=== PATIENT | male | born 1990 | race Caucasian/White ===

== ENCOUNTER 2019-08-23 13:19 | Inpatient (IN) | payer OTHER ==
[~2019-08-23] VITALS: Ht 165.1 cm; Wt 93.0 kg
[2019-08-23 13:33] VITALS: Ht 165.1 cm; Wt 93.0 kg
--- NOTE | 2019-08-23 13:42 | NUR ---
PT ARRIVED TO ED BIB FAMILY WITH COMPLAINTS OF RIGHT SHOULDER PAIN S/P SEIZURE. PT STATES HAD A SEIZURE 1 HOUR AGO AND FELL AND HURT SHOULDER, PT THINKS IT IS DISLOCATED AND IS 10/10 PAIN. PT STATES HAS BEEN HAVING SOB SINCE THE SEIZURE. PT HAS HAD ONE SEZURE IN THE PAST BUT DOES NOT TAKE ANY MEDICATION FOR SEIZURE. PT STATES HAD EPISODE OF VOMITING TODAY. HOOKED UP TO [facility], CHANGED INTO GOWN, SEIZURE PADS APPLIED X 2. SIDE RAILS UP X2. PT STATES LEFT ARM ALSO HAS PAIN BUT NOT BAD RIGHT SIDE. WILL CONTINUE TO MONITOR.
--- NOTE | 2019-08-23 13:55 | NUR ---
ED ASSESSMENT COMPLETED AT THIS TIME. PT REQUESTS O2, INFORMED PT HIS SAT LEVELS WERE NORMAL
--- NOTE | 2019-08-23 14:03 | NUR ---
PT ASLEEP, EASILY AROUSABLE, RESP EU, IN NO ACUTE DISTRESS.
--- NOTE | 2019-08-23 14:37 | NUR ---
DR. DAVIS AT BEDSIDE. MEDICAL SCREENING EXAM IN PROGRESS.
--- NOTE | 2019-08-23 14:39 | NUR ---
PT DISCLOSES TO DR. DAVIS THAT HE'S AN ALCOHOLIC AND DRINKS DAILY. ADMITS THAT WHEN HE STOPS DRINKING HE GETS THE SHAKES. FURTHER DISCLOSES HE'S BEEN AN ALCOHOLIC AROUND 10 YEARS. ALSO DISCLOSED TO DR. DAVIS HE THINKS RT SHOULDER DISLOCATED.
--- NOTE | 2019-08-23 15:06 | NUR ---
PORTABLE RT SHOULDER XRAY IN PROGRESS.
[2019-08-23 16:19] LABS: CALCIUM 8.7 mg/dL (8.5-10.1); CARBON DIOXIDE 18.1 mmol/L (21-32); CHLORIDE SERUM 99 mmol/L (98-107); CREATININE SERUM 0.9 mg/dL (0.7-1.3); GFR1 > 60 mL/min; GLUCOSE SERUM 108 mg/dL (74-106); POTASSIUM SERUM 4.4 mmol/L (3.5-5.1); SODIUM SERUM 135 mmol/L (136-145)
[2019-08-23 16:23] LABS: BASOPHIL % 0 % (0-2); PLATELET COUNT 229 x10^3mcL (130-400); RED CELL DISTRIBUTION WIDTH 13.3 % (11.5-14.5)
--- NOTE | 2019-08-23 16:23 | NUR ---
ACCOMPANIED PT TO CT DEPT AFTER REDUCTION. MONITOR ON. TELE S.T.
[2019-08-23 16:24] LABS: ALBUMIN 4.2 g/dL (3.4-5.0); ALKALINE PHOSPHATASE 48 U/L (46-116); ALT/SGPT 259 U/L (16-63); AST/SGOT 186 U/L (15-37); BILIRUBIN TOTAL 0.3 mg/dL (0.20-1.00); MAGNESIUM 2.7 mg/dL (1.8-2.4)
--- NOTE | 2019-08-23 16:36 | NUR ---
PT RETURNS BACK FROM CT. VIA [employer]. REMINDED NOT TO THRASH ABOUT.
[2019-08-23] MEDS ORDERED: NORCO1 TA2 PO (16:49)
--- NOTE | 2019-08-23 16:52 | NUR ---
STILL THRASHES ABOUT, CONTINUES TO BE REMINDED TO HOLD STILL. ALERT. LESS VULGAR AT THIS TIME. SATURATING WELL AT 98%.
--- NOTE | 2019-08-23 18:30 | NUR ---
REPORT CALLED TO [facility] ON 2ND FLOOR.
[2019-08-23 18:34] LABS: T3 TOTAL 1.21 ng/mL
[2019-08-23 18:39] LABS: FREE T4 0.87 ng/dL (0.76-1.46); FREE THYROXINE INDEX 1.8 ug/dL (1.4-4.5); T4(THYROXINE) 5.5 ug/dL (4.7-13.3)
[2019-08-23 19:10] LABS: CHOLESTEROL/HDL RATIO 5.7; PHOSPHOROUS 2.3 mg/dL (2.5-4.9)
[2019-08-23 19:18] LABS: UA SPECIFIC GRAVITY 1.025 (1.005-1.035); microscopic required? YES; urine erythrocyte 1+ (NEGATIVE)
[2019-08-23 19:28] LABS: AMPHETAMINE QUAL UR NONE DETECTED (See below)
--- NOTE | 2019-08-23 19:30 | NUR ---
RECEIVED PT FROM ED VIA [employer], CAME IN DUE TO SEIZURE ACTIVITY, HAD A FALL AND RIGHT ARM PAIN. PT IS AAOX4. C/O 10/10 HEADACHE, DENIES DIZZINESS, PUPILS ARE REACTIVE TO LIGHT, NO FACIAL DROOP. NO SOB NOTED, LUNG SOUNDS CTA. DENIES CHEST PAIN/PRESSURE, SINUS TACHYCARDIA ON THE MONITOR, HR AT 124. DENIES ABDOMINAL DISCOMFORT. BOWEL SOUNDS ACTIVE. LAST BM WAS 2 DAYS AGO. DENIES NUMBNESS/TINGLING SENSATION. C/O 10/10 BUE PAIN WORSE ON MOVEMENT. LIMITED ROM ON BUE, W/ SLING NOTED ON THE RUE. ABLE TO MOVE FINGERS. VOIDS. IV SITE PATENT AND INTACT. PADDED SIDE RAILS UPX2. CALL LIGHT ON REACH. TEMP-100.2. ENDORSED TO PRIMARY NURSE ARA FOR CONTINUITY OF CARE
--- NOTE | 2019-08-23 19:34 | NUR ---
REPORT RECEIVED FROM VASYL MORENO FOR CONTINUITY OF CARE. PATIENT TO BE TRANSPORTED TO TELEMETRY FLOOR AFTER CHANGE OF SHIFT.
[2019-08-23 19:59] VITALS: BP 151/92
--- NOTE | 2019-08-23 20:03 | NUR ---
PT C/O 01/02 PAIN TO HEAD AND ARMS. DR. IVONNE LORENZO, WAITING CALL BACK.
--- NOTE | 2019-08-23 20:25 | NUR ---
PTS LACTIC ACID IS 2.5. DR. CORONADO NOTIFIED.
--- NOTE | 2019-08-24 00:26 | NUR ---
PT AWAKE/RESTING IN BED AT THIS TIME. NO C/O PAIN OR DISCOMFORT AT THIS TIME. IV INFUSING, PATENT AND INTACT. RR EVEN AND UNLABORED. CALL LIGHT WITHIN REACH. BED IN LOWEST POSITION. WILL CONTINUE TO MONITOR.
[2019-08-24 05:59] VITALS: BP 141/86
--- NOTE | 2019-08-24 06:20 | NUR ---
PT RESTING WATCHING TV. PT DENIES ANY PAIN OR DISCOMFORT AT THIS TIME. RR EVEN AND UNLABORED. IV INFUSING, PATENT AND INTACT. WILL ENDORSE CARE TO ONCOMING SHIFT NURSE. BED IN LOWEST POSITION. CALL LIGHT WITHIN REACH. WILL CONTINUE TO MONITOR.
[2019-08-24 06:43] LABS: BASOPHIL % 0.4 % (0-2); PLATELET COUNT 199 x10^3mcL (130-400); RED CELL DISTRIBUTION WIDTH 13.9 % (11.5-14.5)
[2019-08-24 07:21] LABS: CALCIUM 8.6 mg/dL (8.5-10.1); CHLORIDE SERUM 104 mmol/L (98-107); CREATININE SERUM 0.9 mg/dL (0.7-1.3); GFR1 > 60 mL/min; GLUCOSE SERUM 118 mg/dL (74-106); MAGNESIUM 2.8 mg/dL (1.8-2.4); PHOSPHOROUS 3.3 mg/dL (2.5-4.9); POTASSIUM SERUM 3.8 mmol/L (3.5-5.1); SODIUM SERUM 141 mmol/L (136-145)
--- NOTE | 2019-08-24 07:30 | NUR ---
RECEIVED PATIENT IN BED WITH SLING ON RIGHT ARM. APPEARS TO BE RESTING WELL, AROUSED EASILY TO NAME. IVF AND MULTI VIT INFUSINTG WELL TO LEFT A/C. NO C/O PAIN AT THIS ITME. DID NOT WANT TO EAT BREAKFAST TRAY AT THIS TIME, PER PATIENT HE WILL EAT LATER HE IS TIRED. TELE 22 SR. RESP EVEN AND UNLABORED, LUNGS CLEAR ON ROOM AIR. SZ PRECAUTIONS IN PLACE. NO SZ ACTIVITY NOTED. WILL CONTINUE TO MONITOR.
[2019-08-24 08:07] VITALS: BP 109/72
--- NOTE | 2019-08-24 12:15 | NUR ---
PATIENT C/O HAVING RIGHT SHOULDER PAIN AND BACK PAIN, 8/10 ON THE PAIN SCALE. MEDICATED WITH TODADOL IV BY TERRI FALLON. WILL MONITOR FOR RELIEF.
[2019-08-24 12:24] VITALS: BP 135/84
--- NOTE | 2019-08-24 15:25 | NUR ---
PATIENT REMAINS IN BED TALKING ON PHONE AT THIS TIME. REFUSED BREAKFAST AND LUNCH TRAYS PER PATIENT HE HAS NO APPETITE RIGGHT NOW. APPEARS TO BE MORE AWAKE. PATIENT WENT DOWN VIA W/C FOR CT OF RT SHOULDER AND HAS RETURNED. NO FURTHER C/O PATIENT SINCE TORADOL WAS GIVEN IV EARLIER. WILL CONTINUE TO MONITOR.
[2019-08-24 16:09] VITALS: BP 131/87
--- NOTE | 2019-08-24 17:50 | NUR ---
PATIENT WAS OOB TO CHAIR THIS EVENING TO EAT FOOD FROM HOME. VERY POOR APPTITE NOTED THIS SHIFT. C/O RT SHOULDER AND BACK PAIN 8/10 ON THE PAIN SCALE. WILL BE MEDICATED WITH TORADOL IV BY SHREYAS FALLON ORDERED. WILL MONITOR FOR EFFECT. PATIENT AMBULATED TO THE BATHROOM FOR BM THIS AFTERNOON. TOLERATED WELL. RT ARM REMAINS IN SLING ORDERED. IVF INFUSING WELL, SITE PATENT. DR ARVIZU WAS INTO SEE PATIENT THIS AFTERNOON. PATIENT AWAITING X-RAY OF LEFT SHOULDER TO BE DONE. NO ACUTE DISTRESS NOTED.
--- NOTE | 2019-08-24 18:54 | NUR ---
I HAVE REVIEWED THE DATA COLLECTION BY ERNESTO (NAME):JORGE GARCIA ENTERED ON (DATE/TIME): I CONCUR WITH THE DATA AND ANY EXCEPTIONS OR COMMENTS ARE LISTED BELOW:
--- NOTE | 2019-08-24 19:18 | NUR ---
RECEIVED PT FROM DAY SHIFT NURSE. PT CURRENTLY WATCHING TV IN BED. A/OX4. PT HAS SLING ON R ARM. IVF INFUSING WELL TO LAC. NO S/S OF ACUTE DISTRESS NOTED. NO C/O PAIN OR DISCOMFORT. PT ON TELE #22 SR. RR EVEN AND UNLABORED ON RA. PT IS ON SZ PRECAUTIONS. NO SZ ACTIVITY NOTED. CALL LIGHT WITHIN REACH. BED IN LOWEST POSITION. WILL CONTINUE TO MONITOR.
[2019-08-24 19:37] VITALS: BP 130/73
--- NOTE | 2019-08-25 01:27 | NUR ---
PT WATCHING TV AT THIS TIME. PT STATES SLIGHT DISCOMFORT TO NECK/SHOULDER. WHEN OFFERED TO MEDICATE, PT DENIES THE NEED FOR MEDICATION AT THIS TIME. INSTRUCTED PT TO USE CALL LIGHT IF DISCOMFORT GETS WORSE. NO S/S OF ACUTE DISTRESS NOTED. RR EVEN AND UNLABORED ON RA. CALL LIGHT PLACED NEAR PT. BED IN LOWEST POSITION. WILL CONTINUE TO MONITOR.
--- NOTE | 2019-08-25 04:36 | NUR ---
PT REFUSED AM LABS. PT REQUESTED LAB DRAW AT 8AM.
--- NOTE | 2019-08-25 06:54 | NUR ---
PT SLEEPING AT THIS TIME. NO S/S OF ACUTE DISTRESS NOTED. NO C/O OF PAIN OR DISCOMFORT. RR EVEN AND UNLABORED ON RA. PT HAS SLING TO R ARM. IV INFUSING, PATENT AND INTACT. WILL ENDORSE CARE TO ONCOMING SHIFT NURSE. CALL LIGHT NEAR PT. BED IN LOWEST POSITION. WILL CONTINUE TO MONITOR.
--- NOTE | 2019-08-25 08:00 | NUR ---
SHIFT ASSESSMENT DONE. PATIENT A/A/OX3. SPEECH CLEAR. TELE#22; SR; HR =91. NO RESP DISTRESS ON RA. TOLERATED REGULAR DIET. VOID FREELY. AMBULATORY. RUFUS RADIAL PULSES STRONG PALPABLE. RUFUS HANDS MOVEMENT WNL. DENIED NUMBNESS. IVF OF NS 200CC/HR. IV SITE OT LAC WNL. DENIED PAIN N OW. ENCOURAGE PATIENT TO KEEP SLING TO RUE PER ORDER. CALL LIGHT IN REACH.
[2019-08-25 08:06] LABS: BASOPHIL % 0.6 % (0-2); PLATELET COUNT 159 x10^3mcL (130-400); RED CELL DISTRIBUTION WIDTH 13.5 % (11.5-14.5)
[2019-08-25 08:13] VITALS: BP 117/57
[2019-08-25 08:22] LABS: CALCIUM 8.2 mg/dL (8.5-10.1); CARBON DIOXIDE 25.4 mmol/L (21-32); CHLORIDE SERUM 105 mmol/L (98-107); CREATININE SERUM 0.8 mg/dL (0.7-1.3); GFR1 > 60 mL/min; GLUCOSE SERUM 97 mg/dL (74-106); MAGNESIUM 2.2 mg/dL (1.8-2.4); PHOSPHOROUS 2.9 mg/dL (2.5-4.9); POTASSIUM SERUM 3.8 mmol/L (3.5-5.1); SODIUM SERUM 140 mmol/L (136-145)
[2019-08-25] MEDS ORDERED: NORCO1 TA2 PO (10:18)
--- NOTE | 2019-08-25 10:40 | NUR ---
DR. MCCULLOUGH CALLED AND TALKED TO PATIENT ON THE PHONE.
[2019-08-25 11:24] VITALS: BP 117/57
--- NOTE | 2019-08-25 12:25 | NUR ---
D/C TO HOME PER ORDER. INSTRUCTION GIVEN. IV D/C'D. SLING TO RT ARM PER ORDER. AMBULATORY. STATED RT SHOULDER PAIN ON TOLERATED LEVEL. CONDITION STABLE.
== END 2019-08-25 12:32 | disposition home or self-care (01) | DRG 53 ==
LOC: ED 13:19 → DU 17:20 → MU 08-25 08:41
PROVIDERS: Specialist; ADMIT Internal Medicine
PROC: 0RSJXZZ Reposition Right Shoulder Joint, External Approach (ICD-10-PCS; principal; 2019-08-23)
DX: G40.909 Epilepsy, unspecified, not intractable, without status epilepticus (principal); G92 Toxic encephalopathy; E83.41 Hypermagnesemia; E87.1 Hypo-osmolality and hyponatremia; S43.024A Posterior dislocation of right humerus, initial encounter; F10.239 Alcohol dependence with withdrawal, unspecified; Y90.9 Presence of alcohol in blood, level not specified; R74.0 Nonspecific elevation of levels of transaminase and lactic acid dehydrogenase [LDH]; X58.XXXA Exposure to other specified factors, initial encounter; Y93.89 Activity, other specified; Y92.89 Other specified places as the place of occurrence of the external cause; Y99.8 Other external cause status
CPT/HCPCS: 83880; 84439; G0378; G0480; J1885; J2060; J3411; J3490; J7030; Q0092

== ENCOUNTER 2019-09-02 02:41 | Emergency (ER) | payer OTHER ==
[~2019-09-02] VITALS: Ht 172.7 cm; Wt 81.6 kg
[~2019-09-02 02:41] MED LIST: NORCO1 TA2 PO
[2019-09-02 02:42] VITALS: BP 113/69; Ht 172.7 cm; Wt 81.6 kg
== END 2019-09-02 03:22 | disposition other institution (70) ==
LOC: ED 02:41
DX: M25.511 Pain in right shoulder (principal); M25.512 Pain in left shoulder; G89.29 Other chronic pain; Z13.9 Encounter for screening, unspecified
CPT/HCPCS: Q0092

== ENCOUNTER 2019-09-02 02:41 | Emergency (ER) | payer OTHER | END 2019-09-02 03:22 | disposition other institution (70) | LOC: ED 02:41 | DX: Z02.89 Encounter for other administrative examinations (principal) ==

== ENCOUNTER 2019-12-26 20:57 | Emergency (ER) | payer MEDICAID ==
[~2019-12-26] VITALS: Ht 167.6 cm; Wt 92.1 kg
[2019-12-26 21:05] VITALS: Ht 167.6 cm; Wt 92.1 kg
[2019-12-26 21:47] VITALS: BP 132/81
== END 2019-12-26 21:47 | disposition home or self-care (01) ==
LOC: ED 20:57
DX: H10.89 Other conjunctivitis (principal); E11.9 Type 2 diabetes mellitus without complications